=== PATIENT | female | born 1975 | race Caucasian/White ===

== ENCOUNTER → 2018-10-17 | Outpatient (CLI) | payer OTHER ==
--- NOTE | 2018-10-17 15:03 | RAD ---
DATE: 10/17/2018 2:30 PM EXAM: MAMMO NII SCREENING BILATERAL HISTORY: routine screening evaluation. COMPARISON: Prior mammographic imaging 01/28/2016, 01/10/2013 Bilateral CC and MLO views of the breasts were performed. Bilateral breast tomosynthesis was performed in CC and MLO projections. This study was interpreted with the benefit of Computerized Aided Detection (CAD ). Breast Density: The breast parenchyma is heterogeneously dense, which could reduce sensitivity of mammography. Breast parenchyma level C. FINDINGS: There are 2 well-circumscribed lesions in the left breast seen best on the tomographic images. They're located superiorly on the MLO view, and only one is seen on the cc view, laterally. No suspicious right breast mass. No suspicious microcalcifications or architectural distortion is present in either breast. The visualized axillae are unremarkable. IMPRESSION: Well-circumscribed left breast masses, which although may represent cysts, additional sonographic imaging is advised. BI-RADS CATEGORY: 0 INCOMPLETE: NEEDS ADDITIONAL IMAGING EVALUATION AND/OR PRIOR MAMMOGRAMS FOR COMPARISON. RECOMMENDED FOLLOW-UP: ADD ADDITIONAL IMAGING The patient will be contacted to return for additional imaging, to include ultrasound of the left breast, and a supplemental report will follow. PQRS compliance statement: Patient information was entered into a reminder system with a target due date -immediate recall for further imaging.. Mammography is a sensitive method for finding small breast cancers, but it does not detect them all and is not a substitute for careful clinical examination. A negative mammogram does not negate a clinically suspicious finding and should not result in delay in biopsying a clinically suspicious abnormality. "Our facility is accredited by the [employer] Mammography [employer]." SUKHD
== END | disposition home or self-care (01) ==
LOC: MAMMO 12:51
PROVIDERS: ATTEND Physician Assistant
DX: Z12.31 Encounter for screening mammogram for malignant neoplasm of breast (principal)
CPT/HCPCS: 77063; 77067

== ENCOUNTER → 2018-11-08 | Outpatient (CLI) | payer OTHER ==
[2018-11-08 14:47] LABS: BASO # 0.1 x10^3/uL (0.0-0.2); BASO % 1 % (0-3); EOS % 1 % (0-3); HEMATOCRIT 39.5 % (36.0-47.0); HEMOGLOBIN 13.6 g/dL (12.0-15.5); LYMPH # 1.8 x10^3/uL (1.0-4.8); LYMPH % 24 % (24-48); MEAN CORPUSCULAR HEMOGLOBIN 28 pg (25-35); MEAN CORPUSCULAR HGB CONC 35 g/dL (31-37); MEAN CORPUSCULAR VOLUME 81 fL (79-100); MONO # 0.6 x10^3/uL (0.0-1.1); MONO % 8 % (0-9); NEUT % 67 % (31-73); PLATELET COUNT 203 x10^3/uL (140-400); RED BLOOD COUNT 4.87 x10^6/uL (3.50-5.40); RED CELL DISTRIBUTION WIDTH 13.6 % (11.5-14.5); WHITE BLOOD COUNT 7.4 x10^3/uL (4.0-11.0)
[2018-11-08 15:02] LABS: ALBUMIN 3.9 g/dL (3.4-5.0); ALBUMIN/GLOBULIN RATIO 1.2 (1.0-1.7); CALCIUM 9.1 mg/dL (8.5-10.1); CREATININE 1.1 mg/dL (0.6-1.0); GFR 54.2; POTASSIUM 3.9 mmol/L (3.5-5.1); TOTAL BILIRUBIN 0.4 mg/dL (0.2-1.0); TOTAL PROTEIN 7.2 g/dL (6.4-8.2)
--- NOTE | 2018-11-08 15:56 | RAD ---
Left breast ultrasound, 11/08/2018: History: Abnormal mammograms Recent screening mammograms demonstrated 2 small smooth nodules in the lateral aspect of the left breast. A targeted ultrasound exam of the lateral left breast demonstrates numerous simple appearing cysts. There is a cluster of simple cysts measuring 1.3 and 1.2 cm at the 3:30 location. A cluster of 2 simple cysts measuring 8 mm and 9 mm is evident at the 3:00 location. These findings correspond in location to the mammographic abnormalities. Several additional smaller cysts are incidentally noted. No suspicious breast mass is seen. IMPRESSION: Multiple left breast cysts. Routine yearly mammographic follow-up is suggested. BI-RADS 2-benign findings
[2018-11-09 14:26] LABS: FREE T4 1.06 ng/dL (0.76-1.46); THYROID STIM HORMONE (TSH) 1.606 uIU/mL (0.358-3.740)
== END | disposition home or self-care (01) ==
LOC: PMG 13:37
PROVIDERS: ATTEND Physician Assistant
DX: N60.02 Solitary cyst of left breast (principal)
CPT/HCPCS: 36415; 76641; 80053; 84439; 84443; 84481; 85025

== ENCOUNTER → 2019-07-05 | Outpatient (CLI) | payer OTHER ==
[2019-07-05 12:18] LABS: BASO % 1 % (0-3); EOS % 1 % (0-3); HEMATOCRIT 41.7 % (36.0-47.0); HEMOGLOBIN 14.1 g/dL (12.0-15.5); LYMPH # 1.9 x10^3/uL (1.0-4.8); LYMPH % 29 % (24-48); MEAN CORPUSCULAR HEMOGLOBIN 28 pg (25-35); MEAN CORPUSCULAR HGB CONC 34 g/dL (31-37); MEAN CORPUSCULAR VOLUME 83 fL (79-100); MONO # 0.6 x10^3/uL (0.0-1.1); MONO % 9 % (0-9); NEUT % 61 % (31-73); PLATELET COUNT 186 x10^3/uL (140-400); RED BLOOD COUNT 5.04 x10^6/uL (3.50-5.40); RED CELL DISTRIBUTION WIDTH 13.2 % (11.5-14.5); WHITE BLOOD COUNT 6.6 x10^3/uL (4.0-11.0)
[2019-07-05 12:24] LABS: ALBUMIN 4.1 g/dL (3.4-5.0); ALBUMIN/GLOBULIN RATIO 1.1 (1.0-1.7); CALCIUM 9.2 mg/dL (8.5-10.1); GFR 60.2; POTASSIUM 3.7 mmol/L (3.5-5.1); TOTAL BILIRUBIN 0.5 mg/dL (0.2-1.0); TOTAL PROTEIN 7.7 g/dL (6.4-8.2)
[2019-07-05 14:54] LABS: FREE T4 0.88 ng/dL (0.76-1.46)
[2019-07-05 14:55] LABS: THYROID STIM HORMONE (TSH) 2.619 uIU/mL (0.358-3.740)
[2019-07-06 01:07] LABS: ESTRADIOL LEVEL 85.7 pg/mL (.); FSH 13.2 mIU/mL (.); LUTEINIZING HORMONE 14.2 mIU/mL (.)
[2019-07-07 19:20] LABS: ESTROGEN LEVEL 246 pg/mL (.)
[2019-07-08 08:12] LABS: TESTOSTERONE FREE 0.59 ng/dL (0.10-0.85); TESTOSTERONE TOTAL 36 ng/dL (8-48)
[2019-07-09 11:08] LABS: DHEA 213 ng/dL (31-701)
== END | disposition home or self-care (01) ==
LOC: PMG 09:13
PROVIDERS: ATTEND Registered Nurse
DX: N92.6 Irregular menstruation, unspecified (principal)
CPT/HCPCS: 36415; 80053; 82626; 82670; 82672; 83001; 83002; 84144; 84402; 84403; 84439; 84443; 84481; 85025

== ENCOUNTER → 2019-07-11 | Outpatient (CLI) | payer OTHER ==
--- NOTE | 2019-07-11 17:45 | RAD ---
ABDOMEN LTD History: Palpable anterior abdominal wall masses. Comparison: None Technique: Sonographic examination of the anterior abdominal wall. Findings: Limited ultrasound of the right lateral anterior abdominal wall demonstrates hyperechoic lesion measures 1.1 x 1.2 x 0.7 cm within the subcutaneous tissues. Limited ultrasound of the left anterior abdominal wall demonstrates small hypoechoic lesion within the subcutaneous tissues measures 0.5 x 0.5 x 0.3 cm. Impression: 1. Two anterior abdominal wall subcutaneous masses, may represent lipomas. Recommend continued clinical follow-up and if interval growth ultrasound follow-up. Electronically signed by: Mekhi Gallardo DO (07/11/2019 5:42 PM) [facility]
--- NOTE | 2019-07-11 17:48 | RAD ---
US PELVIS W/TV History: Abnormal uterine bleeding. Comparison: None. Technique: Grayscale and color Doppler imaging of the pelvis was performed using transabdominal and transvaginal technique. Findings: The uterus measures 9.9 x 6.0 x 5.3 cm in length. Slightly heterogeneous uterus. Thickened endometrium measures up to 2.3 cm. No definite color Doppler flow. Right ovary measures 2.9 x 2.0 x 1.6 cm and is unremarkable. Left ovary measures 2.5 x 3.0 x 1.3 cm and is unremarkable. No adnexal masses are seen. IMPRESSION: 1. Thickened endometrium, may represent endometrial hyperplasia or endometrial polyp, less likely endometrial carcinoma. Recommend further clinical evaluation and biopsy if indicated.. Electronically signed by: Mekhi Gallardo DO (07/11/2019 5:45 PM) [facility]
== END | disposition home or self-care (01) ==
LOC: US 09:51
PROVIDERS: ATTEND Registered Nurse
DX: R19.01 Right upper quadrant abdominal swelling, mass and lump (principal); R93.89 Abnormal findings on diagnostic imaging of other specified body structures; N93.9 Abnormal uterine and vaginal bleeding, unspecified
CPT/HCPCS: 76705; 76830; 76856

== ENCOUNTER → 2021-11-25 | Outpatient (CLI) | payer OTHER ==
--- NOTE | 2021-11-25 15:21 | RAD ---
EXAM: Bilateral digital diagnostic mammogram with tomosynthesis; bilateral breast sonogram. HISTORY: 46-year-old female presents with bilateral breast lumps. TECHNIQUE: Full-field digital craniocaudal and mediolateral oblique 2D and 3D tomosynthesis images of both breasts are obtained for evaluation. Computer aided detection was applied. Sonographic imaging of both breasts targeted to sites of mammographic nodularity and site of palpable concern was also pe rformed. COMPARISON: Left breast sonogram dated 11/08/2018 and prior mammograms dated 10/17/2018 and 01/28/2016 BREAST PARENCHYMAL DENSITY: Level D - Extremely dense. FINDINGS: There is no new suspicious mass, microcalcification or region of architectural distortion. There are multiple circumscribed nodular densities within both breasts and a predominantly left upper outer quadrant distribution, several which are decreased in size compared to the prior exam. There a re scattered benign calcifications. Sonographic imaging of the right breast demonstrates a 9 mm cyst with internal debris at the 11:00 po sition 4 cm from the nipple. There is a 6 mm simple cyst at the 12:00 position 3 cm from the nipple. There are few additional smaller cysts and there are fibrocystic changes scattered throughout the rig ht breast. No suspicious lesion is seen. Sonographic imaging of the left breast demonstrates a 1.3 cm simple cyst with adjacent daughter cyst measuring 0.8 cm at the 2:00 position. There is a 6 mm cyst at the 12:00 position. There is a 1.0 cm cyst at the 2:00 position 3 cm from the nipple. There are additional smaller cysts and there are fibr ocystic changes scattered throughout the left breast. No suspicious lesion is seen. IMPRESSION: 1. Multiple benign cysts and fibrocystic changes scattered throughout both breasts, the largest of wh ich correspond with areas of palpable concern. There is no convincing suspicious mammographic or sono graphic finding. 2. BI-RADS Category 2: Benign finding(s). RECOMMENDATION: Annual mammography is recommended. Continued clinical follow-up of palpable abnormali ties is also recommended. Repeat imaging can be performed if there is a change in physical exam findi ngs or continuing concern. If your mammogram demonstrates that you have dense breast tissue, which could hide abnormalities, and if you have other risk factors for breast cancer that have been identified, you might benefit from s upplemental screening tests that may be suggested by your ordering physician. Dense breast tissue, i n and of itself, is a relatively common condition. This information is not provided to cause undue c oncern, but rather to raise your awareness and to promote discussion with your physician regarding th e presence of other risk factors, in addition to dense breast tissue. A report of your mammography re sults will be sent to you and your physician. You should contact your physician if you have any ques tions or concerns regarding this report. Mammography is a sensitive method for finding small breast cancers, but it does not detect them all a nd is not a substitute for careful clinical examination. A negative mammogram does not negate a clin ically suspicious finding and should not result in delay in biopsying a clinically suspicious abnorma lity. PQRS compliance statement - Patient information was entered into a reminder system with a target due date for the next mammogram. "Our facility is accredited by the [employer] Mammography [employer]." Electronically signed by: Emily Ocampo MD (11/25/2021 3:19 PM) [id number]
== END ==
LOC: MAMMO 13:53
PROVIDERS: ATTEND Physician Assistant
DX: N60.02 Solitary cyst of left breast (principal); N60.01 Solitary cyst of right breast
CPT/HCPCS: 76641; 77066; G0279; 77062